=== PATIENT | female | born 1955 | race Caucasian/White ===

== ENCOUNTER 2023-11-20 20:55 | Emergency (ER) | payer SELFPAY ==
[2023-11-20 21:10] VITALS: BP 139/84; PULSE 85; RESP 18; TEMP 97.6; BMI 33.5
[2023-11-20 22:42] LABS: EOS % 0.8 % (0-4.5); HEMATOCRIT 35.6 % (32.4-45.2); HEMOGLOBIN 11.9 GM/dL (10.7-15.3); LYMPH % 32.5 % (8-40); MCH 31.9 pg (25.7-33.7); MCHC 33.3 g/dl (32.0-36.0); MEAN CELL VOLUME 95.8 fl (80-96); MEAN PLT VOLUME 7.2 fl (7.5-11.1); MONO % 5.8 % (3.8-10.2); NEUT % 59.9 % (42.8-82.8); PLATELET COUNT 403 10^3/uL (134-434); RBC 3.71 M/mm3 (3.60-5.2); RDW 16.2 % (11.6-15.6); WHITE BLOOD COUNT 9.1 K/mm3 (4.0-10.0)
[2023-11-20 22:54] LABS: POTASSIUM 4.2 mmol/L (3.5-5.1)
[2023-11-20 22:56] LABS: ALBUMIN 3.3 g/dl (3.4-5.0); CALCIUM 9.1 mg/dL (8.5-10.1)
[2023-11-20 22:57] LABS: BLOOD UREA NITROGEN 15.7 mg/dL (7-18)
[2023-11-20 22:59] LABS: CREATININE 1.4 mg/dL (0.55-1.3)
[2023-11-20 23:01] LABS: BILIRUBIN,TOTAL 1.1 mg/dL (0.2-1); TOT PROT 6.9 g/dl (6.4-8.2)
[2023-11-21] MEDS ORDERED: KETOROLAC TROMETHAMINE 15 MG/ML VIAL IVPUSH ONE (00:11)
[2023-11-21] MEDS ORDERED: ACETAMINOPHEN 1000 MG/100 ML BAG IVPB ONE (00:11)
[2023-11-21] MEDS ORDERED: KETOROLAC TROMETHAMINE 15 MG/ML VIAL ONE (00:17)
[2023-11-21] MEDS ORDERED: ACETAMINOPHEN INJECTION 100 ML IVPB ONE (00:17)
== END 2023-11-21 01:42 | disposition home or self-care (01) ==
LOC: JER 20:55
PROC: 3E033NZ Introduction of Analgesics, Hypnotics, Sedatives into Peripheral Vein, Percutaneous Approach (ICD-10-PCS; principal; 2023-11-21)
PROC: 3E033NZ Introduction of Analgesics, Hypnotics, Sedatives into Peripheral Vein, Percutaneous Approach (ICD-10-PCS; 2023-11-21)
DX: R07.9 Chest pain, unspecified (principal); R05.9 Cough, unspecified; R91.8 Other nonspecific abnormal finding of lung field; R94.4 Abnormal results of kidney function studies; R06.02 Shortness of breath; Z20.822 Contact with and (suspected) exposure to COVID-19
CPT/HCPCS: 0241U-QW; 36415; 71046-TC-FY; 80053; 84484; 85025; 85379; 93005; 93010; 99285-25